=== PATIENT | male | born 1940 ===

== ENCOUNTER 2020-06-01 21:13 | Inpatient (IN) | payer MEDICARE, OTHER ==
--- NOTE | 2020-06-02 01:34 | PDOC.FPRHP ---
- History of Present Illness Chief Complaint: Shortness of breath History of Present Illness: 79yoM presents as a transfer from [place] for worsening COVID19 symptoms. He states he has been feeling bad for 2 weeks. I spoke with the RN at [place] and he presented to the ED 05/29 for low back pain and then returned 05/30 for COVID symptoms. His timeline of illness is unclear. He was tested 05/30 and resulted positive 05/31. He has a home O2 concentrator for an unknown reason and has been using it intermittently. He received one dose of the outpatient monoclonal antibody bamlanivimab 06/01. He presented to the ED last night for worsening shortness of breath and requiring O2 more frequently. At the time of my evaluation, Mr. Castaneda was A&O x3 however he was extremely fatigued and kept dozing off. He did not recall his home medications, entire PMH or the timeline of his illness. Most of the history was gleaned from his chart from [place] and speaking the the RN there. ED Course: Tylenol, Azithromycin 500mg, Rocephin 1g, Dexamethasone 8mg, KCl 20meq - Allergies/Adverse Reactions Allergies Allergy/AdvReac Type Severity Reaction Status Date / Time No Known Allergies Allergy Unverified 06/02/20 04:17 - Home Medications Medication Instructions Recorded Confirmed Type Atorvastatin Calcium [Lipitor] 40 mg PO DAILY 06/02/20 06/02/20 History Azilsartan Med/Chlorthalidone 1 tablet PO DAILY 06/02/20 06/02/20 History [Edarbyclor] Cefdinir 300 mg PO Q12HR 06/02/20 06/02/20 History Cholecalciferol (Vitamin D3) 06/02/20 History [Vitamin D3] Citalopram [CeleXA] 20 mg PO DAILY 06/02/20 06/02/20 History Diltiazem HCl [Cartia XT] 180 mg PO BID 06/02/20 06/02/20 History Leuprolide Acetate [Lupron Depot] 30 mg IM Q120D 06/02/20 History - History PMHx: HLD HTN Prostate Cancer Renal Cancer (?) patient denies, but it is in his PMH from [place]. h/o Melanoma PSHx: Appendectomy FHx: Unable to attain Social: Drinks 1-2 beverages per week. Denies tobacco or illicit drug use. - Review of Systems General: reports: fatigue. denies: fever/chills, weight/appetite/sleep changes, night sweats Eyes: denies: eye pain, vision changes ENT: denies: nasal congestion, rhinorrhea Respiratory: reports: cough, shortness of breath. denies: congestion Cardiovascular: denies: chest pain, palpitation, edema, paroxysmal nocturnal dyspnea, orthopnea Gastrointestinal: denies: nausea, vomiting, diarrhea, constipation, abdominal pain Genitourinary: denies: incontinence, dysuria Skin: reports: lesions (to L hip, does not recall injury). denies: rashes Musculoskeletal: reports: pain (lower back). denies: tenderness, stiffness Neurological: denies: numbness, syncope, seizure, weakness - Vital signs BP: 136/71 HR: 61 RR: 20 Tmax: 98.0 Pox: 97% on 2L Wt: 98kg - Physical Exam Constitutional: NAD, well developed -Constitutional: somnolent HEENT: normocephalic and atraumatic, PERRLA, EOMI, conjunctiva clear, grossly normal vision, grossly normal hearing, MMM Neck: supple, trachea midline Heart: RRR Lungs: no respiratory distress, good air movement -Lungs: Coarse breath sounds bilaterally. Abdomen: soft, non-tender, bowel sounds present Musculoskeletal: normal structure, normal tone Neurological: no focal deficit -Skin: Skin tear on left hip with bruising Heme/Lymphatic: no unusual bruising or bleeding, no purpura Psychiatric: normal mood and affect, good judgment and insight FMR H&P: Results - Labs Result Diagrams: 06/02/20 06:06 06/02/20 06:06 Lab results: Na 131, K 2.8, Cl 94, Co2 24, BUN 15.7, Cr 1.0, Glucose 156. AST 19 ALT 19 BNP 115 WBC 6.39, Hb 11.4, Hct 31.8, Platelets 200 - Radiology Interpretation Chest x-ray Status: report reviewed by me (L sided dense infiltrate. Streaky densities in the R lung. Interval worsening of bilateral interstitial and airspace disease compatible with pneumonia.) FMR H&P: A/P - Problem List (1) Pneumonia due to COVID-19 virus Current Visit: Yes Status: Acute Code(s): U07.1 - COVID-19; J12.82 - PNEUMONIA DUE TO CORONAVIRUS DISEASE 2018 (2) HTN (hypertension) Current Visit: Yes Status: Acute Code(s): I10 - ESSENTIAL (PRIMARY) HYPERTENSION (3) HLD (hyperlipidemia) Current Visit: Yes Status: Acute Code(s): E78.5 - HYPERLIPIDEMIA, UNSPECIFIED (4) H/O prostate cancer Current Visit: Yes Status: Acute Code(s): Z85.46 - PERSONAL HISTORY OF MALIGNANT NEOPLASM OF PROSTATE (5) Depression Current Visit: Yes Status: Acute Code(s): F32.9 - MAJOR DEPRESSIVE DISORDER, SINGLE EPISODE, UNSPECIFIED - Plan COVID 19 Pneumonia, positive 05/30. (states symptoms x2 weeks) - Transferred from [place] for higher level of care. - ABG ordered - patient is somnolent. - s/p 1 dose of outpatient MAB. - Will consider for Remdesivir treatment, however patient is unsure of his COVID timeline. - Repeat CXR in the morning. - Dexamethasone 6mg daily - Dulera inhaler mirza - O2 prn - COVID labs (LDH, Ferritin, D-dimer, CRP, CBC, CMP) pending for AM for baseline. - Procal pending. - PT/OT consulted. Patient appears deconditioned. - s/p Azithro and Rocephin in [place]. Afebrile, WBC WNL, will consider d/c antibiotics pending procal. HTN - Resume home medications - One of his home medications is diltiazem, he did not report h/o arrhythmia. EKG ordered. HLD - Resume home medications. H/o prostate cancer Depression - Continue citalopram CODE: Full PCP: OOT IV fluids: SL VTE: Lovenox (ppx) and SCDs. Addendum - Attending - Attending Attestation Date/Time: 06/02/20 0613 I personally evaluated the patient and discussed the management with Dr. Garg. I agree with the History, Examination, Assessment and Plan documented above with any addition or exceptions noted below. Patient here with several days of worsening shortness of breath. He was found a few days ago to be COVID positive. Currently, his sats are stable on 3L by NC. Will continue steroids and supportive care. Replete Potassium. Monitor BP.
[2020-06-02] MEDS ORDERED: Acetaminophen 325 MG TAB PO PRN (02:04)
[2020-06-02] MEDS ORDERED: Ondansetron ODT 4 MG TAB PO PRN (02:04)
[2020-06-02] MEDS ORDERED: Calcium Carbonate 500 MG ChewTAB PO PRN (02:04)
[2020-06-02 03:00] LABS: Actual Bicarbonate (HCO3a) 25.3 mEq/L (22-28); Base Excess (BEa) 1.2 mEq/L (-2.0 to +3.0); CO2 Tension 38.3 mmHg (35.0-45.0); Calcium, Ionized (arterial) 1.05 mmol/L (1.12-1.30); Carboxyhemoglobin (COHb) 0.3 gm% (0.0-3.0); Hemoglobin (Hb) 11.8 g/dL (14.0-18.0); O2 Tension (PaO2), arterial 77.9 mmHg (> 60.0); Potassium - ABG Lab 3.12 mmol/L (3.70-5.30); pH, Arterial 7.44 (7.35-7.45)
[2020-06-02 03:05] LABS: Puncture Site RRA
[2020-06-02 03:06] LABS: ALV-art Gradient 102.385 mmHg (0-20)
[2020-06-02 03:55] VITALS: BMI 32.8
[2020-06-02 06:22] LABS: #Lymphocytes 0.6 thou/uL (1.20-3.40); #Monocytes 0.2 thou/uL (0.11-0.59); #Neutrophils 7.4 thou/uL (1.40-6.50); %Eosinophils 0.2 % (0.0-10.0); %Lymphocytes 7.2 % (21.0-51.0); %Monocytes 2.5 % (0.0-10.0); %Neutrophils 90.1 % (42.0-75.0); Hemoglobin 12.2 g/dL (14.0-18.0); Mean Corpuscular HGB CONC 34.6 g/dL (32.0-36.0); Mean Corpuscular Volume 89.5 fL (78.0-98.0); Mean Platelet Volume 6.1 fL (7.4-10.4); Platelet Count 221 thou/uL (130-400); RBC Distribution Width 11.8 % (11.5-14.5); Red Blood Cell (RBC) Count 3.94 mill/uL (4.70-6.10); White Blood Cell (WBC) Count 8.3 thou/uL (4.8-10.8)
[2020-06-02 06:47] LABS: ALT (SGPT) 18 U/L (8-55); AST (SGOT) 19 U/L (5-34); Albumin 3.4 g/dL (3.4-4.8); Alkaline Phosphatase 42 U/L (40-110); Anion Gap 15 mmol/L (10-20); BUN (Urea Nitrogen) 15 mg/dL (8.4-25.7); Bilirubin, Total 0.4 mg/dL (0.2-1.2); CRP (Inflammatory) 13.52 mg/dL (= or < 0.5); Calc. Creatinine Clearance 76 mL/min (70-130); Carbon Dioxide 27 mmol/L (23-31); Chloride 93 mmol/L (98-107); Globulin 2.9 g/dL (2.4-3.5); Glucose 189 mg/dL (83-110); Magnesium 1.7 mg/dL (1.6-2.6); Potassium 3.4 mmol/L (3.5-5.1); Protein, Total 6.3 g/dL (5.8-8.1); Sodium 132 mmol/L (136-145)
[2020-06-02] MEDS: Losartan 25 MG TAB PO SCH (08:18)
[2020-06-02] MEDS: Enoxaparin Sodium 40 MG/0.4 ML SYRINGE SC SCH (08:18)
[2020-06-02] MEDS: Dexamethasone 4 mg/ml Vial SLOW IVP SCH (08:18)
[2020-06-02] MEDS: Atorvastatin Calcium 40 MG TAB PO SCH (08:19)
[2020-06-02] MEDS: Citalopram 20 MG TAB PO SCH (08:25)
--- NOTE | 2020-06-02 08:45 | RAD ---
PORTABLE CHEST: Date: 06/02/2020 HISTORY: Follow-up COVID pneumonia. COMPARISON: Prior day's exam. FINDINGS: Heart size is within normal limits. Bilateral lung infiltrates are stable. IMPRESSION: Stable exam. POS: LISSY
[2020-06-02] MEDS ORDERED: FLU VACC QS2020-21(65YR UP)/PF 240 MCG/0.7 ML SYRINGE IM ONE (09:00)
[2020-06-02] MEDS ORDERED: Chlorthalidone 25 MG TAB PO SCH (09:00)
[2020-06-02] MEDS: Mometasone 200 MCG/Formoterol 5 MCG 120 PUFF INHALER INH SCH ×2 (09:22→17:35)
[2020-06-02] MEDS ORDERED: Potassium Chloride 20 MEQ TAB PO SCH (09:45)
--- NOTE | 2020-06-02 15:30 | PQF ---
CLINICAL DOCUMENTATION CLARIFICATION FORM: Dear Dr. Garg Date: 06/02/20 Please exercise your independent, professional judgment in responding to the clarification form. Clinical indicators are provided on the bottom of this form for your review. Please check appropriate box(es): [ x ] Acute Respiratory Failure: [ x ] with Hypoxia [ ] with Hypercapnia [ ] Acute On Chronic Respiratory Failure: [ ] with Hypoxia [ ] with Hypercapnia [ x ] Acute Respiratory Failure due to: (etiology) COVID 19 [ ] Chronic Respiratory Failure only [ ] with Hypoxia [ ] with Hypercapnia [ ] Other diagnosis [ ] Unable to determine In addition, please specify: Present on Admission (POA): [ ] Yes [ ] No [ ] Unable to determine For continuity of documentation, please document condition throughout progress notes and discharge summary. Thank You. To be completed by CDI/Coding staff for physician review: CLINICAL INDICATORS - SIGNS / SYMPTOMS / LABS / RESULTS AND LOCATION IN &P -[place]ANNA[place]: HE PRESENTED TO THE ED LAST NIGHT FOR WORSENING SHORTNESS OF BREATH AND REQUIRING O2 MORE FREQUENTLY." "EXTREMELY FATIGUED AND KEPT DOZING OFF." H&P- CROFT / CHEST XRAY: "REPORT REVIEWED BY ME- LEFT SIDED DENSE INFILTRATE. STREAKY DENSITIES IN THE RIGHT LUNG. INTERVAL WORSENING OF BILATERAL INTERSTITIAL AND AIRSPACE DISEASE COMPATIBLE WITH PNEUMONIA." RISK FACTORS/ RESULTS AND LOCATION IN MR COVID PNEUMONIA (H&P-CROGRAYSON) PATIENT IS SOMNOLENT (H&P) USES HOME O2 CONCENTRATOR FOR AN UNKNOWN REASON (H&P) TREATMENTS / RESULTS AND LOCATION IN TRANSFER FROM [place] FOR HIGHER LEVEL OF CARE AZITHROMYCIN ([place] [facility]) DEXAMETHASONE ([place] [facility] / ORDERED HERE /) IV ROCEPHIN ([place] [facility]) CHEST XRAY3/2 DULERA (STARTED 06/02) Acute Respiratory Failure: ABG pH < 7.35 or > 7.45; Decreased oxygen saturation (<90% room air or < 95% on oxygen); PCO2 > 50 mm Hg; PO2 < 60 mm Hg; Labored or rapid respirations ARDS: Dx Criteria [Taylor ARDS]: Respiratory symptoms within one week of a known clinical insult (e.g. shock, infection, surgery, trauma) Bilateral opacities in CXR/Chest CT not due to CHF or fluid CDS Signature: Lulu Franklin RN Phone #: [phone] Date: 06/02/20 [place]
--- NOTE | 2020-06-03 06:29 | PDOC.FM ---
- Subjective Subjective: No acute overnight events. Reports he is comfortable on 2LNC. Decreased appetite, does not enjoy hospital food. No nausea, vomiting. - Objective Vital Signs & Weight: Vital Signs (12 hours) Temp Pulse Resp BP BP Pulse Ox 06/03/20 00:00 98.2 F 63 20 127/68 95 06/02/20 20:00 98.0 F 66 20 156/72 H 94 L Weight Weight 98 kg Result Diagrams: 06/02/20 06:06 06/03/20 06:39 Phys Exam - Physical Examination Constitutional: NAD HEENT: moist MMs Neck: supple few rales, coarse breath sounds bilaterally Cardiovascular: RRR, no significant murmur Gastrointestinal: soft, non-tender, no distention Musculoskeletal: no edema, pulses present Neurological: non-focal, moves all 4 limbs Psychiatric: normal affect, A&O x 3 Skin: cap refill <2 seconds Dx/Plan - Plan Plan: COVID 19 Pneumonia, positive 05/30. (states symptoms x2 weeks) - Transferred from [place] for higher level of care. - s/p 1 dose of outpatient MAB. - Dexamethasone 6mg daily - Dulera inhaler mirza - O2 prn - Procal 0.33, low risk for sepsis - PT/OT consulted. Patient appears deconditioned. - s/p Azithro and Rocephin in [place]. Afebrile, WBC WNL HTN - holding home hygroton due to high risk for hyponatremia given chlorthalidone, decreased PO intake in the setting of illness - continue other home meds, losartan & diltiazem - may add hydralazine if BP elevated while holding chlorthalidone HLD - Resume home medications. H/o prostate cancer Depression - Continue citalopram Hypokalemia, resolved Hyponatremia Likely 2/2 decreased PO intake. - hold chlorthalidone as above - monitor BMP - replete as needed CODE: Full PCP: OOT IV fluids: SL VTE: Lovenox (ppx) and SCDs. Addendum - Attending - Attending Attestation Date/Time: 06/03/20 1049 I personally evaluated the patient and discussed the management with Dr. Cross. I agree with the History, Examination, Assessment and Plan documented above with any addition or exceptions noted below. Patient stable. Continues to do well on current O2 supplementation by NC. Continue Decadron. If stable this afternoon, consider discharge with good return precautions given the risk of decompensation from COVID pneumonia.
[2020-06-03 07:06] LABS: Anion Gap 15 mmol/L (10-20); BUN (Urea Nitrogen) 22 mg/dL (8.4-25.7); Calc. Creatinine Clearance 84 mL/min (70-130); Carbon Dioxide 27 mmol/L (23-31); Chloride 95 mmol/L (98-107); Glucose 156 mg/dL (83-110); Potassium 3.5 mmol/L (3.5-5.1); Sodium 133 mmol/L (136-145)
[2020-06-03] MEDS: Mometasone 200 MCG/Formoterol 5 MCG 120 PUFF INHALER INH SCH ×2 (08:44→17:59)
[2020-06-03] MEDS: Losartan 25 MG TAB PO SCH (08:45)
[2020-06-03] MEDS: Atorvastatin Calcium 40 MG TAB PO SCH (08:45)
[2020-06-03] MEDS: Dexamethasone 4 mg/ml Vial SLOW IVP SCH (08:46)
[2020-06-03] MEDS: Enoxaparin Sodium 40 MG/0.4 ML SYRINGE SC SCH (08:46)
[2020-06-03] MEDS: Citalopram 20 MG TAB PO SCH (08:49)
[2020-06-04] MEDS: Mometasone 200 MCG/Formoterol 5 MCG 120 PUFF INHALER INH SCH ×2 (06:07→18:17)
--- NOTE | 2020-06-04 07:15 | PDOC.FM ---
- Subjective Subjective: Increased to 3LNC overnight. Reports he is feeling better this AM. Has been trying to eat, usually only eats 2 meals per day at home. - Objective Vital Signs & Weight: Vital Signs (12 hours) Temp Pulse Resp BP Pulse Ox 06/04/20 06:07 65 20 92 L 06/04/20 04:00 98.2 F 59 L 20 155/72 H 93 L 06/04/20 00:00 98.2 F 60 22 H 147/73 H 90 L 06/03/20 20:00 95 Weight Weight 98 kg Result Diagrams: 06/02/20 06:06 06/04/20 06:58 Phys Exam - Physical Examination Constitutional: NAD HEENT: moist MMs, sclera anicteric Neck: supple rales bilateral Cardiovascular: RRR, no significant murmur Gastrointestinal: soft, non-tender, no distention Musculoskeletal: no edema, pulses present Neurological: non-focal, moves all 4 limbs Psychiatric: normal affect, A&O x 3 Skin: cap refill <2 seconds Dx/Plan - Plan Plan: COVID 19 Pneumonia, positive 05/30. (states symptoms x2 weeks) - Transferred from [place] for higher level of care. - s/p 1 dose of outpatient MAB. - Dexamethasone 6mg daily - Dulera inhaler mirza - O2 prn - Procal 0.33, low risk for sepsis - PT/OT consulted. Patient appears deconditioned. - s/p Azithro and Rocephin in [place]. Afebrile, WBC WNL Increased O2 requirement today, dropped to 88% on 2LNC at rest, increased to 3LNC and saturating well. Will add ICS, encouraged ambulation, chair time. HTN - holding home hygroton due to high risk for hyponatremia given chlorthalidone, decreased PO intake in the setting of illness - continue other home meds, losartan & diltiazem - will continue to monitor BP HLD - Resume home medications. H/o prostate cancer Depression - Continue citalopram Hypokalemia, mild Hyponatremia Likely 2/2 decreased PO intake. - hold chlorthalidone as above - monitor BMP - replete as needed CODE: Full PCP: OOT IV fluids: SL VTE: Lovenox (ppx) and SCDs. Addendum - Attending - Attending Attestation Date/Time: 06/04/20 1343 I personally evaluated the patient and discussed the management with Dr. Cross. I agree with the History, Examination, Assessment and Plan documented above with any addition or exceptions noted below. Patient overall stable. Continue COVID care. Monitor O2 sats.
[2020-06-04 07:34] LABS: Anion Gap 13 mmol/L (10-20); BUN (Urea Nitrogen) 30 mg/dL (8.4-25.7); Calc. Creatinine Clearance 76 mL/min (70-130); Calcium 8.2 mg/dL (7.8-10.44); Carbon Dioxide 29 mmol/L (23-31); Chloride 94 mmol/L (98-107); Glucose 149 mg/dL (83-110); Potassium 3.4 mmol/L (3.5-5.1); Sodium 133 mmol/L (136-145)
[2020-06-04] MEDS ORDERED: Potassium Chloride 20 MEQ TAB PO SCH (08:15)
[2020-06-04] MEDS: Losartan 25 MG TAB PO SCH (09:30)
[2020-06-04] MEDS: Atorvastatin Calcium 40 MG TAB PO SCH (09:30)
[2020-06-04] MEDS: Dexamethasone 4 mg/ml Vial SLOW IVP SCH (09:30)
[2020-06-04] MEDS: Citalopram 20 MG TAB PO SCH (09:30)
[2020-06-04] MEDS: Enoxaparin Sodium 40 MG/0.4 ML SYRINGE SC SCH (09:31)
[2020-06-05] MEDS: Mometasone 200 MCG/Formoterol 5 MCG 120 PUFF INHALER INH SCH (06:30)
[2020-06-05 06:57] LABS: Anion Gap 16 mmol/L (10-20); BUN (Urea Nitrogen) 31 mg/dL (8.4-25.7); Calc. Creatinine Clearance 75 mL/min (70-130); Calcium 8.4 mg/dL (7.8-10.44); Carbon Dioxide 26 mmol/L (23-31); Chloride 96 mmol/L (98-107); Glucose 144 mg/dL (83-110); Potassium 3.6 mmol/L (3.5-5.1); Sodium 134 mmol/L (136-145)
--- NOTE | 2020-06-05 07:20 | PDOC.FM ---
- Subjective Subjective: No acute overnight events. Reports he is feeling well, no SOB on O2. Endorses time in the chair. Return of appetite. He feels ready to go home. - Objective Vital Signs & Weight: Vital Signs (12 hours) Temp Pulse Resp BP Pulse Ox 06/05/20 06:30 59 L 16 93 L 06/05/20 05:07 98.3 F 60 16 172/79 H 93 L 06/05/20 01:23 97.5 F L 62 18 165/68 H 91 L 06/04/20 21:35 97.8 F 63 16 174/72 H 89 L 06/04/20 20:00 92 L Weight Weight 98 kg Result Diagrams: 06/02/20 06:06 06/05/20 06:10 Phys Exam - Physical Examination Constitutional: NAD HEENT: moist MMs Neck: supple Respiratory: no rales decreased breath sounds bilaterally Cardiovascular: RRR, no significant murmur Gastrointestinal: soft, non-tender, no distention, positive bowel sounds Musculoskeletal: no edema, pulses present Neurological: non-focal, moves all 4 limbs Psychiatric: normal affect, A&O x 3 Skin: cap refill <2 seconds Dx/Plan - Plan Plan: COVID 19 Pneumonia, positive 05/30. (states symptoms x2 weeks) - Transferred from [place] for higher level of care. - s/p 1 dose of outpatient MAB. - Dexamethasone 6mg daily - Dulera inhaler mirza - O2 prn - Procal 0.33, low risk for sepsis - PT/OT consulted. Patient appears deconditioned. - s/p Azithro and Rocephin in [place]. Afebrile, WBC WNL O2 saturation remained stable at 3LNC, saturation 93% this AM. Comfortable on 3LNC and feeling ready to go home. Already has home O2 arranged prior to admission. Plan for DC to home today. HTN - holding home hygroton due to high risk for hyponatremia given chlorthalidone, decreased PO intake in the setting of illness - continue other home meds, losartan & diltiazem - will continue to monitor BP - may resume chlorthalidone at home if he is having his usual PO intake HLD - Resume home medications. H/o prostate cancer Depression - Continue citalopram Hypokalemia, mild Hyponatremia Likely 2/2 decreased PO intake. - hold chlorthalidone as above - monitor BMP - replete as needed CODE: Full PCP: OOT IV fluids: SL VTE: Lovenox (ppx) and SCDs. Dispo: admitted to medical. plan to DC to home today, may need HH. Addendum - Attending - Attending Attestation Date/Time: 06/05/20 [id number] I personally evaluated the patient and discussed the management with Dr. Cross. I agree with the History, Examination, Assessment and Plan documented above with any addition or exceptions noted below. Patient stable on 2-3L of O2 by NC. He has concentrator at home. Hopeful if he remains stable through the day that he can be discharged home with good return precautions and to complete course of Dexamethasone.
[2020-06-05] MEDS: Losartan 25 MG TAB PO SCH (09:02)
[2020-06-05] MEDS: Atorvastatin Calcium 40 MG TAB PO SCH (09:02)
[2020-06-05] MEDS: Dexamethasone 4 mg/ml Vial SLOW IVP SCH (09:03)
[2020-06-05] MEDS: Enoxaparin Sodium 40 MG/0.4 ML SYRINGE SC SCH (09:04)
[2020-06-05] MEDS: Citalopram 20 MG TAB PO SCH (09:10)
[2020-06-05 12:49] VITALS: BP 136/64; TEMP 98.1
== END 2020-06-05 16:51 | disposition home health service (06) | DRG 177 ==
LOC: T4-A 21:13
PROVIDERS: ADMIT Family Medicine; ATTEND Family Medicine
PROC: 8E0ZXY6 Isolation (ICD-10-PCS; principal; 2020-06-01)
DX: U07.1 COVID-19 (principal); J12.82 Pneumonia due to coronavirus disease 2019; J96.01 Acute respiratory failure with hypoxia; F33.9 Major depressive disorder, recurrent, unspecified; E87.1 Hypo-osmolality and hyponatremia; E87.6 Hypokalemia; I10 Essential (primary) hypertension; E78.5 Hyperlipidemia, unspecified; Z90.49 Acquired absence of other specified parts of digestive tract; Z85.46 Personal history of malignant neoplasm of prostate; Z79.899 Other long term (current) drug therapy
CPT/HCPCS: 36415; 36416; 36600; 71045; 80048; 80053; 82728; 82805; 83615; 83735; 84145; 85025; 85379; 86140; 93005; 93010; 94664; J1100; J1650